=== PATIENT | male | born 1995 | race African-American/Black ===

== ENCOUNTER 2019-08-12 16:01 | Emergency (ER) | payer BC ==
--- NOTE | 2019-08-12 16:34 | EDM.PDOC ---
ED HPI GENERAL MEDICAL PROBLEM - General Chief Complaint: Gastrointestinal Problem Stated Complaint: COLD SWEATS, VOMITTING, PASSING OUT, BODY ACHES Time Seen by Provider: 08/12/19 16:48 - History of Present Illness INITIAL COMMENTS - FREE TEXT/NARRATIVE: 23-year-old male presents the emergency room with nausea vomiting lightheadedness and trying to pass out. This started last night after eating supper he had some nausea and vomiting this is continued. It is been fairly frequent to has had intermittent cough that seems to have started after the nausea and vomiting. Patient has history of having a cyst removed from his pelvis, no other abdominal surgeries patient denies any medical problems and claims to be in pretty good health. He has no other complaints at this time. He is not aware of any fevers he has been chilled. - Related Data Allergies Allergy/AdvReac Type Severity Reaction Status Date / Time No Known Allergies Allergy Verified 08/12/19 16:37 Past Medical History HEENT History: Reports: None Cardiovascular History: Reports: None Respiratory History: Reports: None Gastrointestinal History: Reports: None Genitourinary History: Reports: None Musculoskeletal History: Reports: None Neurological History: Reports: None Psychiatric History: Reports: None Endocrine/Metabolic History: Reports: None Hematologic History: Reports: None Oncologic (Cancer) History: Reports: None Dermatologic History: Reports: None - Infectious Disease History 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 Denies: Fever HEENT: Reports: No Symptoms Respiratory: Reports: Cough. Denies: Shortness of Breath, Sputum Endocrine: Reports: No Symptoms (Has a mild dry cough) GI/Abdominal: Reports: Abdominal Pain, Nausea, Vomiting : Reports: No Symptoms Musculoskeletal: Reports: No Symptoms Skin: Reports: No Symptoms Neurological: Reports: No Symptoms Hematologic/Lymphatic: Reports: No Symptoms ED EXAM, GI/ABD - Physical Exam Exam: See Below Exam Limited By: No Limitations General Appearance: Alert, No Apparent Distress Eyes: Bilateral: Normal Appearance Ears: Normal External Exam, Normal Canal, Hearing Grossly Normal, Normal TMs Nose: Normal Inspection, Normal Mucosa, No Blood Head: Atraumatic, Normocephalic Neck: Normal Inspection, Supple, Non-Tender, Full Range of Motion. No: Lymphadenopathy (L), Lymphadenopathy (R) Respiratory/Chest: No Respiratory Distress, Lungs Clear, Normal Breath Sounds Cardiovascular: Regular Rate, Rhythm, No Edema, No Murmur GI/Abdominal Exam: Normal Bowel Sounds, Soft, Non-Tender Back Exam: Normal Inspection. No: CVA Tenderness (L), CVA Tenderness (R) Extremities: Normal Inspection, No Pedal Edema Neurological: Alert, Oriented, Normal Cognition Course - Vital Signs Last Recorded V/S: Last Vital Signs Temp 36.8 C 08/12/19 16:28 Pulse 61 08/12/19 16:28 Resp 16 08/12/19 16:28 BP 117/80 08/12/19 16:28 Pulse Ox 100 08/12/19 16:28 - Orders/Labs/Meds Orders: Active Orders 24 hr Category Date Time Status UA RFX JOVITA AND CULT IF INDIC [URIN] Stat Lab 08/12/19 17:09 Ordered Labs: Laboratory Tests 08/12/19 08/12/19 08/12/19 Range/Units 17:28 17:28 17:28 WBC 9.34 H (4.23-9.07) K/mm3 RBC 4.79 (4.63-6.08) M/mm3 Hgb 14.5 (13.7-17.5) gm/dl Hct 44.9 (40.1-51.0) % MCV 93.7 H (79.0-92.2) fl MCH 30.3 (25.7-32.2) pg MCHC 32.3 (32.2-35.5) g/dl RDW Std Deviation 45.1 H (35.1-43.9) fL Plt Count 210 (163-337) K/mm3 MPV 10.8 (9.4-12.3) fl Neutrophils % (Manual) 65 H (40-60) % Band Neutrophils % 1 (0-10) % Lymphocytes % (Manual) 19 L (20-40) % Atypical Lymphs % 7 % Monocytes % (Manual) 7 (2-10) % Eosinophils % (Manual) 1 (0.8-7.0) % Basophils % (Manual) 0 L (0.2-1.2) Platelet Estimate Adequate RBC Morph Comment Normal Sodium 141 (136-145) mEq/L Potassium 4.3 (3.5-5.1) mEq/L Chloride 105 (98-107) mEq/L Carbon Dioxide 27 (21-32) mEq/L Anion Gap 13.3 (5-15) BUN 15 (7-18) mg/dL Creatinine 1.0 (0.7-1.3) mg/dL Est Cr Clr Drug Dosing 107.79 mL/min Estimated GFR (MDRD) > 60 (>60) mL/min BUN/Creatinine Ratio 15.0 (14-18) Glucose 80 (74-106) mg/dL Calcium 9.5 (8.5-10.1) mg/dL Ferritin 74 (26-388) ng/ml Total Bilirubin 0.6 (0.2-1.0) mg/dL AST 29 (15-37) U/L ALT 17 (16-63) U/L Alkaline Phosphatase 71 (46-116) U/L C-Reactive Protein 0.6 (<1.0) mg/dL Total Protein 7.8 (6.4-8.2) g/dl Albumin 4.2 (3.4-5.0) g/dl Globulin 3.6 gm/dL Albumin/Globulin Ratio 1.2 (1-2) Lipase 107 (73-393) U/L Meds: Medications Discontinued Medications Generic Name Dose Route Start Last Admin Trade Name Toiq PRN Reason Stop Dose Admin Lactated Ringer's 1,000 mls @ 999 mls/hr 08/12/19 17:09 08/12/19 17:45 Ringers, Lactated IV 08/12/19 18:09 999 mls/hr .BOLUS ONE Administration Lactated Ringer's 1,000 mls @ 999 mls/hr 08/12/19 17:10 Ringers, Lactated IV 08/12/19 18:10 .BOLUS ONE Ondansetron HCl 4 mg 08/12/19 17:10 08/12/19 17:45 Zofran IVPUSH 08/12/19 17:11 4 mg ONETIME ONE Administration - Re-Assessments/Exams Free Text/Narrative Re-Assessment/Exam: 08/12/19 18:41 Shortly after orders were put in the patient signed out AMA Departure - Departure Time of Disposition: 17:55 Disposition: Against Medical Advice 07 Clinical Impression: Gastroenteritis - Discharge Information Referrals: PCP,None [Primary Care Provider] - Forms: ED Department Discharge Sepsis Event Note - Evaluation Sepsis Screening Result: No Definite Risk - Focused Exam Vital Signs: Vital Signs Temp Pulse Resp BP Pulse Ox 08/12/19 16:28 36.8 C 61 16 117/80 100 Date Exam was Performed: 08/12/19 Time Exam was Performed: 18:40 - My Orders Last 24 Hours: My Active Orders 08/12/19 17:09 UA RFX JOVITA AND CULT IF INDIC [URIN] Stat - Assessment/Plan Last 24 Hours: My Active Orders 08/12/19 17:09 UA RFX JOVITA AND CULT IF INDIC [URIN] Stat
[2019-08-12] MEDS ORDERED: Lactated Ringers 1,000 ML IV ONE ×2 (17:09→17:10)
[2019-08-12] MEDS ORDERED: Ondansetron 4 MG/2 ML SDV IVPUSH ONE (17:10)
== END 2019-08-12 18:00 | disposition left against medical advice (07) ==
LOC: JD.ED 16:01
DX: K52.9 Noninfective gastroenteritis and colitis, unspecified (principal)
CPT/HCPCS: 36415; 80053; 82728; 83690; 85007; 85027; 86140; 96374; 99284; J2405; J7120; 99283

== ENCOUNTER 2019-10-10 22:20 | Emergency (ER) | payer BC | END 2019-10-10 22:40 | disposition left against medical advice (07) | LOC: JD.ED 22:20 | DX: Z53.21 Procedure and treatment not carried out due to patient leaving prior to being seen by health care provider (principal) ==

== ENCOUNTER 2019-12-29 14:48 | Emergency (ER) | payer BC ==
--- NOTE | 2019-12-29 15:50 | EDM.PDOC ---
ED HPI GENERAL MEDICAL PROBLEM - General Chief Complaint: ENT Problem Stated Complaint: ABSCESS IN MOUTH Time Seen by Provider: 12/29/19 15:13 Source of Information: Reports: Patient, RN Notes Reviewed - History of Present Illness INITIAL COMMENTS - FREE TEXT/NARRATIVE: 24 yr old male with dental pain. He has had pain off and on for months, worse the last few days. No fever or chills. Had cough and elizabeth a week ago but that is now better. Oral/Mouth Pain Score (Numeric/FACES): 10 - Related Data Allergies Allergy/AdvReac Type Severity Reaction Status Date / Time No Known Allergies Allergy Verified 10/10/19 22:27 Home Meds: Home Meds Acetaminophen/HYDROcodone [[place] 325-5 MG] 1 tab PO Q6H PRN #10 tablet 12/29/19 [Rx] Amoxicillin 500 mg PO TID 12/29/19 [History] Clindamycin HCl 300 mg PO TID #20 capsule 12/29/19 [Rx] Past Medical History HEENT History: Reports: None Cardiovascular History: Reports: None Respiratory History: Reports: None Gastrointestinal History: Reports: None Genitourinary History: Reports: None Musculoskeletal History: Reports: None Neurological History: Reports: None Psychiatric History: Reports: None Endocrine/Metabolic History: Reports: None Hematologic History: Reports: None Oncologic (Cancer) History: Reports: None Dermatologic History: Reports: Other (See Below) Other Dermatologic History: I&D of abscess - Infectious Disease History 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 - Past Surgical History Male Surgical History: Reports: None Musculoskeletal Surgical History: Reports: None Social & Family History - Family History Family Medical History: Noncontributory Cardiac: Reports: CAD Endocrine/Metabolic: Reports: Diabetes, Type I - Tobacco Use Smoking Status *Q: Current Every Day Smoker Years of Tobacco use: 6 Packs/Tins Daily: 25 - Caffeine Use Caffeine Use: Reports: None - Recreational Drug Use Recreational Drug Use: No ED ROS ENT - Review of Systems Review Of Systems: See Below Constitutional: Denies: Fever, Chills HEENT: Reports: Dental Pain Respiratory: Reports: No Symptoms Cardiovascular: Reports: No Symptoms GI/Abdominal: Reports: No Symptoms Musculoskeletal: Reports: No Symptoms Skin: Reports: No Symptoms ED EXAM, ENT - Physical Exam Exam: See Below General Appearance: Alert, Mild Distress Mouth/Throat: Other (L upper lat incissor is decayed, tender, there is a small area of swelling without drainage posterior to the tooth compatable with early abcess) Neck: Supple Respiratory/Chest: No Respiratory Distress Neurological: Alert, No Motor/Sensory Deficits Skin: Warm, Dry Course - Vital Signs Last Recorded V/S: Last Vital Signs Temp 99.6 F 12/29/19 15:23 Pulse 78 12/29/19 15:23 Resp 20 12/29/19 15:23 BP 140/79 12/29/19 15:23 Pulse Ox 99 12/29/19 15:23 Departure - Departure Time of Disposition: 15:50 Disposition: Home, Self-Care 01 Condition: Fair Clinical Impression: Pain, dental, Dental abscess - Discharge Information Prescriptions: Clindamycin HCl 300 mg PO TID #20 capsule Acetaminophen/HYDROcodone [[place] 325-5 MG] 1 tab PO Q6H PRN #10 tablet PRN Reason: Pain Instructions: Dental Abscess, [id number] Referrals: PCP,None [Primary Care Provider] - Forms: ED Department Discharge Additional Instructions: Do not take the amoxicillin for now. Clindamycin 300 mg 3 times daily for 1 week or until gone. Tylenol for mild to moderate pain or hydrocodone if needed for severe pain. Prescriptions have been sent electronically to the [facility], [facility]. Do not take tylenol and hydocodone at the same time. Do not drive or work when taking hydrocodone. See Dentist as soon as possible. Sepsis Event Note (ED) - Evaluation Sepsis Screening Result: No Definite Risk - Focused Exam Vital Signs: Vital Signs Temp Pulse Resp BP Pulse Ox 12/29/19 15:23 99.6 F 78 20 140/79 99
== END 2019-12-29 16:14 | disposition home or self-care (01) ==
LOC: JD.ED 14:48
DX: K04.7 Periapical abscess without sinus (principal); F17.210 Nicotine dependence, cigarettes, uncomplicated
CPT/HCPCS: 99282; 99283